=== PATIENT | female | born 1995 | race Caucasian/White ===

== ENCOUNTER 2017-09-14 15:43 | Emergency (ER) | payer BC ==
[~2017-09-14] VITALS: Ht 172.7 cm; Wt 67.5 kg
[2017-09-14 15:44] VITALS: Ht 172.7 cm; Wt 67.5 kg
[2017-09-14 15:55] VITALS: O2SAT 96
[2017-09-14] MEDS ORDERED: CEFAZOLIN SOD 1000MG/7.5 ML IV PUSH IV STA (16:22)
[2017-09-14] MEDS ORDERED: SODIUM CHLORIDE 0.9% 1000ML 1,000 ML IV STA (16:22)
[2017-09-14 17:04] LABS: HEMATOCRIT 39.4 % (37-47); HEMOGLOBIN 13.6 g/dL (12.0-16.0); MEAN CELL VOLUME 83.7 fL (80-100); MEAN CORPUSCULAR HEMOGLOBIN 28.9 pg (25-34); MEAN CORPUSCULAR HGB CONC 34.5 g/dl (32-36); MEAN PLATELET VOLUME 9.4 fL (7.4-10.4); PLATELET COUNT 204 K/uL (130-400); RED CELL DISTRIBUTION WIDTH CV 14.1 % (11.5-14.5); RED CELL DISTRIBUTION WIDTH SD 43.3 fL (36.4-46.3)
[2017-09-14 17:11] VITALS: TEMP 37.2
[2017-09-14] MEDS ORDERED: VNTHFA/IN INH (17:15)
[2017-09-14] MEDS ORDERED: NORE-38 PO (17:15)
[2017-09-14 17:19] LABS: BASO % 0.1 %; BASO ABS # 0.01 K/uL (0-0.2); EOS % 0.1 %; EOS ABS # 0.01 K/uL (0-0.5); IG# 0.03 K/uL (0.00-0.02); LYMPH % 4.4 %; LYMPH ABS # 0.34 K/uL (1.2-3.4); MONO % 0.8 %; MONO ABS # 0.06 K/uL (0.11-0.59); NEUT % 94.2 %; NEUT ABS # 7.35 K/uL (1.4-6.5)
[2017-09-14 17:34] LABS: ALBUMIN 3.8 gm/dl (3.4-5.0); CALCIUM 8.6 mg/dl (8.5-10.1); CREATININE 1.09 mg/dl (0.60-1.20); POTASSIUM 3.8 mmol/L (3.5-5.1)
[2017-09-14 17:37] LABS: TOTAL PROTEIN 7.3 gm/dl (6.4-8.2)
[2017-09-14] MEDS ORDERED: DiphenhydrAMINE HCL 50 MG/ML VIAL IV STA (17:38)
[2017-09-14] MEDS ORDERED: CEPH500C PO (19:33)
--- NOTE | 2017-09-14 19:36 | EMERGENCY ROOM VISIT NOTE ---
History First contact with patient: 15:58 Chief Complaint: RASH Stated Complaint: HORRIBLE RASH COVERING ENTIRE BODY History of Present Illness The patient is a 22 year old female who presents to the Emergency Room with complaints of a rash. The patient states the rash began on her upper legs yesterday, but she felt it may have been razor burn, she had not shaved in a long time. She states she got home last evening, noticed it moved upward onto her lower abdomen. She suspected this could have been a reaction to spandex shorts she was wearing. She awoke this morning, and states the rash was worse, on her chest and extremities. She went to [facility] at approximately 10:00 this morning, and was given prednisone and Benadryl. She states she went home after this visit, but the rash continued to worsen despite the medications. The patient does have a known allergy to penicillin, and states she was recently on Bactrim for possible MRSA infection due to an infected nipple piercing. The patient does report sore throat and symptoms suggestive of strep last week, however she did not have a culture. The patient states the drainage from the nipple was cultured, and did grow out a strep species, and not MRSA. She was told by [facility] to continue taking Bactrim, as this would cover for strep. The patient is currently on day 8 of the antibiotic, and did discontinue it after taking a dose this morning. Patient does have a history of scarlet fever as a freshman in college, and states the symptoms were not nearly this bad, however they were similar at that time. She reports discomfort and pain/itching and rates the discomfort 5/10. She denies any new soaps, detergents, or other medications. The patient denies any new foods. She traveled several weeks ago to [facility], but denies any other recent travel. She feels even as she has been here in the emergency department that the rash is spreading. She denies any fever. She denies any nausea or vomiting. She denies any chest pain or dyspnea. Review of Systems A complete 10 point review of systems was reviewed with the patient with pertinent positives and negatives as per history of present illness. All else were negative. Past Medical/Surgical History Scarlet fever Social History Smoking Status: Never Smoker Smokeless Tobacco Use: No Alcohol Use: none Drug Use: none Marital Status: single Housing Status: lives with roommate Occupation Status: [employer] student Current/Historical Medications Scheduled Albuterol Hfa (Ventolin Hfa), 2-4 PUFFS INH UD Cephalexin Monohydrate (Keflex), 500 MG PO TID Ethinyl Estradiol/Norethindr (Loestrin 1.5/30-21 1.5-30 mg-Mcg), 1 TAB PO DAILY Physical Exam Vital Signs Date Time Temp Pulse Resp B/P (MAP) Pulse Ox O2 Delivery O2 Flow Rate FiO2 09/14/17 19:53 101 24 135/86 99 09/14/17 19:00 98 24 135/86 100 Room Air 09/14/17 18:30 95 18 100 Room Air 09/14/17 18:01 152/78 09/14/17 18:00 103 14 99 Room Air 09/14/17 17:52 89 18 134/83 100 Room Air 09/14/17 17:11 37.2 101 20 134/85 100 Room Air 09/14/17 16:12 118 09/14/17 15:55 96 Room Air 09/14/17 15:44 37.7 119 17 139/84 97 Room Air Physical Exam VITALS: Vitals are noted on the nurse's note and reviewed by myself. Vital signs stable. GENERAL: This is a 22-year-old white female, in no acute distress, nondiaphoretic, well-developed well-nourished. SKIN: There is a rough, maculopapular rash which does silvia with pressure over the entire body from head to toe. The only portion of the body which is spared is the soles of the feet. The patient does have erythematous, swollen sunburn on her bilateral shoulders. There is no erythema or bruising noted. There is no tenting of the skin. Capillary reflex less than 2 seconds. HEAD: Normocephalic atraumatic. EARS: External auditory canals clear, tympanic membranes pearly rodriguez without erythema or effusion bilaterally. EYES: Pupils equal round and reactive to light and accommodation. Conjunctivae without injection, sclerae without icterus. Extraocular movements intact. NOSE: Patent, turbinates without inflammation or discharge. No sinus tenderness. MOUTH: Mucous membranes moist. Tonsils are not enlarged. Pharynx did show some petechiae, but no exudate. Uvula midline. Airway patent. Tongue does not deviate. NECK: Supple without nuchal rigidity. No lymphadenopathy. No thyromegaly. Cervical spine is nontender. No JVD. HEART: Regular rate and rhythm without murmurs gallops or rubs. LUNGS: Clear to auscultation bilaterally without wheezes, rales or rhonchi. No dullness to percussion. No retractions or accessory muscle use. ABDOMEN: Positive bowel sounds x 4. Normal tympanic percussion. Soft, nontender, without masses or organomegaly. Ndiaye sign negative. No guarding or rebound tenderness. MUSCULOSKELETAL: No muscle atrophy, erythema, or edema noted. Full range of motion without joint tenderness in all extremities. No tenderness to palpation. Normal gait. Strength 5/5 throughout. NEURO: Patient was alert and oriented to person place and time. Normal sensation to light and sharp touch. Deep tendon reflexes 2+ throughout. No focal neurological deficits. Medical Decision & Procedures Laboratory Results 09/14/17 16:26 Red Blood Count 4.71, Mean Corpuscular Volume 83.7, Mean Corpuscular Hemoglobin 28.9, Mean Corpuscular Hemoglobin Concent 34.5, Mean Platelet Volume 9.4, Neutrophils (%) (Auto) 94.2, Lymphocytes (%) (Auto) 4.4, Monocytes (%) (Auto) 0.8, Eosinophils (%) (Auto) 0.1, Basophils (%) (Auto) 0.1, Neutrophils # (Auto) 7.35, Lymphocytes # (Auto) 0.34, Monocytes # (Auto) 0.06, Eosinophils # (Auto) 0.01, Basophils # (Auto) 0.01 09/14/17 16:26 Test 09/14/17 16:26 White Blood Count 7.80 K/uL (4.8-10.8) Red Blood Count 4.71 M/uL (4.2-5.4) Hemoglobin 13.6 g/dL (12.0-16.0) Hematocrit 39.4 % (37-47) Mean Corpuscular Volume 83.7 fL (80-100) Mean Corpuscular Hemoglobin 28.9 pg (25-34) Mean Corpuscular Hemoglobin Concent 34.5 g/dl (32-36) Platelet Count 204 K/uL (130-400) Mean Platelet Volume 9.4 fL (7.4-10.4) Neutrophils (%) (Auto) 94.2 % Lymphocytes (%) (Auto) 4.4 % Monocytes (%) (Auto) 0.8 % Eosinophils (%) (Auto) 0.1 % Basophils (%) (Auto) 0.1 % Neutrophils # (Auto) 7.35 K/uL (1.4-6.5) Lymphocytes # (Auto) 0.34 K/uL (1.2-3.4) Monocytes # (Auto) 0.06 K/uL (0.11-0.59) Eosinophils # (Auto) 0.01 K/uL (0-0.5) Basophils # (Auto) 0.01 K/uL (0-0.2) RDW Standard Deviation 43.3 fL (36.4-46.3) RDW Coefficient of Variation 14.1 % (11.5-14.5) Immature Granulocyte % (Auto) 0.4 % Immature Granulocyte # (Auto) 0.03 K/uL (0.00-0.02) Anion Gap 8.0 mmol/L (3-11) Est Creatinine Clear Calc Drug Dose 81.6 ml/min Estimated GFR () 83.4 Estimated GFR (Non- 72.0 BUN/Creatinine Ratio 6.2 (10-20) Calcium Level 8.6 mg/dl (8.5-10.1) Total Bilirubin 0.3 mg/dl (0.2-1) Aspartate Amino Transf (AST/SGOT) 18 U/L (15-37) Alanine Aminotransferase (ALT/SGPT) 21 U/L (12-78) Alkaline Phosphatase 90 U/L (45-117) Total Protein 7.3 gm/dl (6.4-8.2) Albumin 3.8 gm/dl (3.4-5.0) Globulin 3.5 gm/dl (2.5-4.0) Albumin/Globulin Ratio 1.1 (0.9-2) Anti-Streptolysin O Antibody Screen POS IU/ml (<200 IU) Anti-Streptolysin O Antibody Titer 400 IU/ml (<200 IU) Medications Administered Medications (Trade) Dose Ordered Sig/Hamzah Route Start Time Stop Time Status Last Admin Dose Admin Sodium Chloride 1,000 ml @ 999 mls/hr Q1H1M STAT IV 09/14/17 16:22 09/14/17 17:22 DC 4/14/18 16:22 999 MLS/HR Cefazolin Sodium (Cefazolin 1000mg Iv Push) 1,000 mg NOW STAT IV 09/14/17 16:22 09/14/17 16:46 DC 09/14/17 17:13 1,000 MG Diphenhydramine HCl (Benadryl Inj) 25 mg NOW STAT IV 09/14/17 17:38 09/14/17 17:39 DC 09/14/17 17:48 25 MG ED Course The patient was seen and evaluated as above. I discussed the case with Dr. arguello, who did see and evaluate the patient as well. Patient was placed on the playground monitor and monitored throughout the entire extent of their stay. In addition, the patient's pulse oximetry was monitored throughout the entire stay. Any abnormalities or aberrancies were addressed appropriately. IV access obtained, labs drawn. The patient was given 1 L normal saline solution, 1 g of Ancef for her symptoms. The patient was reassessed and still notes itchiness, but states that has improved mildly. She was given 25 mg diphenhydramine IV. The patient was reassessed and her mother is at bedside. I discussed the findings of all testing with the patient. The patient is feeling well enough for discharge. Discharge instructions reviewed, patient was discharged home in good condition. Medical Decision This is a 22-year-old female patient presents to the emergency department today complaining of a rash. The rash is similar to that which she experienced approximately 4 years ago with scarlet fever. The rash is maculopapular in nature, and does silvia with pressure. She does have petechiae in her posterior pharynx, but no strawberry tongue. The rash did begin more centrally on the body, and has spread to the extremities. The patient was recently on Bactrim for a possible MRSA infection, despite the negative wound culture for staph, but positive strep culture. The patient was advised that the Bactrim would cover for strep. She did experience a sore throat last week, and does report a history of strep pharyngitis, however was not tested and did not have her throat cultured at that time. The patient was given prednisone and Benadryl by [facility] earlier today, and her symptoms continue to worsen despite these medications. Due to the uncertain exact etiology of the patient's symptoms, basic labs were drawn. Her CBC was without significant leukocytosis, anemia, or thrombocytopenia. Her CMP did not reveal any significant renal, hepatic, or electrolyte abnormalities. Her glucose was slightly elevated at 163, however she did take what she believes to be 60 mg of prednisone earlier today. I suspect this elevation is due to the steroids. The patient's ASO test was positive and the titer was 400. The RPR is pending. Based on these findings, the patient will be treated for probable strep/ scarlatina infection. She was given Ancef here in the emergency department, and did not experience any allergic reaction. She will be discharged home on Keflex with close follow-up by [facility]. All questions were answered to the patient and her mother satisfaction prior to discharge. She was certainly encouraged to come back to the emergency department for any concerning or worsening symptoms. Differential diagnosis includes scarlatina, syphilis, strep, medication reaction , dermatitis, fungal, scabies, herpes, dermatitis, eczema, cellulitis, abscess, viral, musculoskeletal etiology, hepatic abnormality, malignancy, and others The chart was completed utilizing triptap Speech voice recognition software. Grammatical errors, random word insertions, pronoun errors, and incomplete sentences are an occasional consequence of this system due to software limitations, ambient noise, and hardware issues. Any formal questions or concerns about the content, text, or information contained within the body of this dictation should be directly addressed to the provider for clarification. Medication Reconcilliation Current Medication List: was personally reviewed by me Blood Pressure Screening Patient's blood pressure: Normal blood pressure Impression Primary Impression: Streptococcal infection Additional Impressions: Scarlatina Rash of entire body Departure Information Dispostion Home / Self-Care Condition GOOD Prescriptions Cephalexin Monohydrate (Keflex) 500 Mg Cap 500 MG PO TID for 10 Days, #30 CAP Prov: Homa Lora PA-C 09/14/17 Referrals No Doctor, Assigned (PCP) [facility] Patient Instructions ED Allergic Reaction General Other, ED [facility] Al[facility] Additional Instructions You have been treated in the Emergency Department for a rash. I suspect a scarlatina rash associated with streptococcal infection, however I am unable to completely rule out a reaction to Bactrim. You have been treated and monitored in the Emergency Department appropriately with no adverse reactions to cephalosporin antibiotics. Cephalexin(Keflex) 500mg: Take one pill three times daily for 10 days for your strep infection. All antibiotics can cause diarrhea. If this occurs and you feel worse or it does not resolve in 1-2 days follow up with your doctor or return to the Emergency Department as this could be signs of serious underlying problems. Any medication can cause an allergic reaction, stop the pills immediately and return to the ER for rash, hives, breathing difficulties, or swelling. You should take Benadryl (diphenhydramine) 25-50 mg orally every 4-6 hours for the next 5-7 days. This medication is [id number] and you will NOT need a prescription to purchase this at your local pharmacy. You should continue taking the Benadryl for the COMPLETION of the 5-7 days. This is to prevent a rebound allergic reaction in the event that allergens are still present in your system. You should take Zantac (ranitidine) 75 mg orally once daily for the next 7 days. This medication is [id number] and you will NOT need a prescription to purchase this at your local pharmacy. You should continue taking the Zantac for the COMPLETION of the 7 days. This is to prevent a rebound allergic reaction in the event that allergens are still present in your system. Take prednisone as prescribed by [facility]. As with every Emergency Department visit, you should follow-up with your primary care provider/S in 2-3 days for reevaluation. Return to the Emergency Department if your current symptoms worsen despite treatment course outlined above, or if you develop any of the following symptoms : wheezing, tongue or face swelling, tightness in your throat, shortness of breath, or fainting. Problem Qualifiers
[2017-09-14 19:53] VITALS: BP 135/86; PULSE 101; O2SAT 99
--- NOTE | 2017-09-14 19:53 | EMERGENCY ROOM VISIT NOTE ---
ED Visit Note First contact with patient: 16:00 Patient seen and evaluated bedside with the physician physician assistant primary care. Patient with significant newly diffuse rash that appears to initially have been patchy and is now coalescing. It does not involve plantar aspects of the patient's feet and there is minimal encroachment on the palmar surface of the patient's hands proximally. Patient no recent travel, no recent insect bites. Part of patient' s rash on exposed extremities patient states is from sunburn. Concern also recently for possible allergic reaction manifesting as a skin rash to Bactrim the patient was started on 4 and infected piercing. Patient with no known prior sulfa allergy. Patient also recently admitted to sore throat with possible tonsillar exudates, and has previously had recurrent strep throat. It is possible the patient's symptoms are also component of scarlet fever. Please refer to the physician physician assistant primary care's notes for additional details and lab values. Patient treated for possible scarlet fever given positive ASO and description of likely strep pharyngitis. Patient instructed to discontinue her use of Bactrim. Patient counseled on need for close follow-up, symptoms to watch and return for. I do not suspect SJS/TEN as there is no mucocutaneous or mucous membrane lesions, no skin sloughing, negative Nicolsky sign.
--- NOTE | 2017-09-16 14:57 | Pharmacy Progress Note ---
ED Pharmacist Culture FollowUp Date of Service: Sep 16, 2017. Patient was sent home with a prescription for cephalexin, which should cover the Group A Strep growing from the patient's throat culture.
[2017-09-17 01:11] LABS: RAPID PLASMA REAGIN NONREACTIVE (NONREACT)
== END 2017-09-14 19:52 | disposition home or self-care (01) ==
LOC: C.EDB 15:44 → C.EDA 19:52
DX: A38.9 Scarlet fever, uncomplicated (principal); R76.0 Raised antibody titer; Z86.19 Personal history of other infectious and parasitic diseases; Z79.3 Long term (current) use of hormonal contraceptives